=== PATIENT | female | born 1990 | race Caucasian/White ===

== ENCOUNTER 2017-05-21 14:04 | Emergency (ER) | payer OTHER, BC ==
[~2017-05-21] VITALS: Ht 165.1 cm; Wt 70.0 kg
[2017-05-21 14:21] VITALS: BP 137/71; PULSE 97; RESP 16; TEMP 98.7; O2SAT 97
[2017-05-21] MEDS ORDERED: ADDE20 PO (14:34)
[2017-05-21] MEDS ORDERED: LEVO.1 PO (14:34)
[2017-05-21] MEDS ORDERED: birth control pills PO (14:34)
[2017-05-21] MEDS ORDERED: LIOT25 PO (14:34)
[2017-05-21] MEDS ORDERED: KETOROLAC TROMETHAMINE 60 MG/2 ML (IM) VIAL IM ONE (15:00)
[2017-05-21] MEDS ORDERED: ORPHENADRINE INJ 60 MG/2 ML AMP IM ONE (15:00)
[2017-05-21] MEDS ORDERED: NAPR500T2 PO (15:20)
[2017-05-21] MEDS ORDERED: CYCL5TAB PO (15:20)
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
== END 2017-05-21 16:05 | disposition home or self-care (01) ==
LOC: PHEFT 14:04
DX: M54.2 Cervicalgia (principal); R51 Headache; E03.9 Hypothyroidism, unspecified; V89.2XXA Person injured in unspecified motor-vehicle accident, traffic, initial encounter; Y92.488 Other paved roadways as the place of occurrence of the external cause
CPT/HCPCS: 96372; 99284; J1885; J2360